=== PATIENT | female | born 1990 | race Asian ===

== ENCOUNTER 2017-04-15 14:11 | Inpatient (IN) | payer OTHER ==
[~2017-04-15] VITALS: Ht 172.7 cm; Wt 80.7 kg
--- NOTE | 2017-04-15 14:20 | NUR ---
VICTORIANO FROM HOME DUE TO ALTERED MENTAL STATUS. PATIENT RECEIVED ALERT. HOWEVER, PATIENT IS NON VERBAL. RESPONSE TO SIMPLE QUESTIONS ONLY. PATIENT IS AFEBRILE. PER REPORT FRIEND CALLED 911 FOR AMS AND RESCUE FOUND METHAMPETAIME SALT AND EDIBLE MARIJUANA WITH PATIENT. PATIENT'S VSS AT THIS TIME
--- NOTE | 2017-04-15 14:26 | NUR ---
PATIENT NOTED WITH WEAKNESS ON RIGHT UPPER EXTREMITY AND RIGHT LOWER EXTREMITY. REMAINS NON VERBAL. MD HERMAN MADE AWARE
--- NOTE | 2017-04-15 14:28 | NUR ---
PATIENT WAS TAKEN TO CT
--- NOTE | 2017-04-15 14:28 | NUR ---
CALLED [facility] TELESTROKE HOTLINE, SPOKE WITH FAUSTINO. EXPECTING A CALL BACK FROM DR SCHILLING.
[2017-04-15] MEDS ORDERED: IOHEXOL-350 100 ML VIAL IV ONE (14:31)
[2017-04-15] MEDS ORDERED: CT SWABBABLE VALVE TRANS SET 1 EA INFUS.SET MC ONE (14:31)
[2017-04-15] MEDS ORDERED: IV NS 0.9% 250 ML IV ONE (14:31)
--- NOTE | 2017-04-15 14:34 | NUR ---
DR HERMAN ON THE PHONE WITH DR SCHILLING FROM [place].
[2017-04-15 14:53] LABS: BASOPHILS # (AUTO) 0.1 /CMM (0.0-0.2); BASOPHILS % (AUTO) 0.9 % (0.0-2.0); EOSINOPHILS # (AUTO) 0.2 /CMM (0.0-0.7); EOSINOPHILS % (AUTO) 3.4 % (0.0-6.0); HEMATOCRIT 39 % (33-45); HEMOGLOBIN 12.9 g/dL (11.5-14.8); LYMPHOCYTES # (AUTO) 0.9 /CMM (0.8-4.8); MEAN CORPUSCULAR HEMOGLOBIN 30 PG (26.0-33.0); MEAN CORPUSCULAR HGB CONC 33 g/dl (31.0-36.0); MEAN CORPUSCULAR VOLUME 90 fL (82-100); MONOCYTES # (AUTO) 0.4 /CMM (0.1-1.30); MONOCYTES % (AUTO) 5.3 % (2.0-12.0); NEUTROPHILS # (AUTO) 5.3 /CMM (1.8-8.9); NEUTROPHILS % (AUTO) 77.4 % (43.0-81.0); PLATELET COUNT (AUTO) 229 /CMM (150-450); RDW COEFFICIENT OF VARIATION 12.9 (11.5-15.0); RED BLOOD CELL COUNT(AUTO) 4.28 MIL/uL (4.0-5.2); WHITE BLOOD COUNT (AUTO) 6.9 K/uL (4.3-11.0)
--- NOTE | 2017-04-15 14:53 | NUR ---
CALLED [facility] TELESTROKE LINE, DR SCHILLING WILL BE NOTIFIED OF CT RESULTS
--- NOTE | 2017-04-15 14:56 | NUR ---
URINE SAMPLE SENT
[2017-04-15 15:03] LABS: CALCIUM, SERUM 7.9 mg/dL (8.5-10.1); CARBON DIOXIDE 26 mmol/L (21-32); CHLORIDE 104 mmol/L (98-107); CREATININE 0.7 mg/dL (0.6-1.3); GLUCOSE 99 mg/dL (74-106); SODIUM SERUM 137 mmol/L (136-145); UREA NITROGEN, BLOOD 10 mg/dL (7-18)
--- NOTE | 2017-04-15 15:05 | NUR ---
DR. NAIK ON THE PHONE WITH DR HERMAN.
[2017-04-15 15:06] LABS: INR 1.05 (0.87-1.13); PROTHROMBIN TIME 10.9 SECS (9.5-12.7)
[2017-04-15 15:08] LABS: ALANINE AMINOTRANSFERASE 17 U/L (12-78); ALBUMIN 3.3 g/dL (3.4-5.0); ALKALINE PHOSPHATASE 36 U/L (46-116); ASPARTATE AMINOTRANSFERASE 18 U/L (15-37); BILIRUBIN,DIRECT 0.1 mg/dL (0.0-0.2); BILIRUBIN,TOTAL 0.5 mg/dL (0.2-1.0)
[2017-04-15 15:10] LABS: TROPONIN I < 0.017 ng/mL (0.00-0.056)
[2017-04-15] MEDS ORDERED: ASPIRIN 81 MG TAB.CHEW ONE (15:27)
[2017-04-15] MEDS ORDERED: ONDANSETRON HCL/PF 4 MG/2 ML VIAL IVP PRN (15:30)
[2017-04-15] MEDS ORDERED: ZOLPIDEM TARTRATE 5 MG TABLET PO PRN (15:30)
[2017-04-15] MEDS ORDERED: MAGNESIUM HYDROXIDE 30 ML UDC PO PRN (15:30)
[2017-04-15] MEDS ORDERED: ASPIRIN 81 MG TAB.CHEW PO ONE (15:30)
[2017-04-15] MEDS ORDERED: Z GUARD REMEDY 2 OZ OINT TP PRN (15:30)
[2017-04-15] MEDS ORDERED: ACETAMINOPHEN 325 MG TABLET PO PRN (15:30)
[2017-04-15] MEDS ORDERED: MAG HYDROX/AL HYDROX/SIMETH 30 ML UDC PO PRN (15:30)
--- NOTE | 2017-04-15 15:42 | NUR ---
PATIENT WILL BE ADMITTED INTO [facility].
--- NOTE | 2017-04-15 15:43 | NUR ---
TEXTED FOR MRI APPROVAL.
--- NOTE | 2017-04-15 16:21 | NUR ---
PATIENT TRANSPORTED TO [facility]. VS [facility] STABLE. RUBY COX AT BS
--- NOTE | 2017-04-15 16:30 | NUR ---
MS RN RECEIVED A NEW ADMISSION FROM ER, 27 YEAR OLD PATIENT, CAME IN W/ DX OF TIA, PATIENT IS AWAKE, BUT DOES NOT SPEAK, RESPIRATIONS EVEN AND UNLABORED, NO SOB NOTED, PATIENT CAN'T SPEAK AT THIS TIME, STROKE PROTOCOL INITIATED, NO S/S OF INFECTION NOTED.WILL MONITOR PATIENT'S CONDITION.
--- NOTE | 2017-04-15 19:00 | NUR ---
MS RN ON BED, FRIENDS ON BED SIDE, NO DISTRESS NOTED.
[2017-04-15 19:08] LABS: BASOPHILS % (AUTO) 0.3 % (0.0-2.0); EOSINOPHILS # (AUTO) 0.2 /CMM (0.0-0.7); EOSINOPHILS % (AUTO) 1.9 % (0.0-6.0); HEMATOCRIT 41 % (33-45); HEMOGLOBIN 13.7 g/dL (11.5-14.8); LYMPHOCYTES # (AUTO) 1.2 /CMM (0.8-4.8); LYMPHOCYTES % (AUTO) 13.5 % (20.0-44.0); MEAN CORPUSCULAR HEMOGLOBIN 30 PG (26.0-33.0); MEAN CORPUSCULAR HGB CONC 33 g/dl (31.0-36.0); MEAN CORPUSCULAR VOLUME 90 fL (82-100); MONOCYTES # (AUTO) 0.4 /CMM (0.1-1.30); MONOCYTES % (AUTO) 5.3 % (2.0-12.0); NEUTROPHILS # (AUTO) 6.8 /CMM (1.8-8.9); PLATELET COUNT (AUTO) 247 /CMM (150-450); RDW COEFFICIENT OF VARIATION 13.3 (11.5-15.0); WHITE BLOOD COUNT (AUTO) 8.6 K/uL (4.3-11.0)
[2017-04-15 19:20] LABS: CALCIUM, SERUM 8.5 mg/dL (8.5-10.1); CREATININE 0.6 mg/dL (0.6-1.3); POTASSIUM 3.5 mmol/L (3.5-5.1)
[2017-04-15 19:30] LABS: INR 0.98 (0.87-1.13); PROTHROMBIN TIME 10.5 SECS (9.5-12.7)
--- NOTE | 2017-04-15 19:30 | NUR ---
RN INITIAL NOTES RECEIVED PATIENT IN BED, AWAKE AND ALERT. FRIENDS AT BEDSIDE. PATIENT AT THIS TIME IS OBSERVED TO BE ABLE TO INTERACT WITH FRIENDS - NOTED TO BE MONOSYLLABIC SUCH "YES", "NO", EXCLAIM PAIN WITH "AWWW", ABLE TO SIT UP IN BED, ABLE TO SIT ERECT. PATIENT OBSERVED WITH R SIDED DROOPING OF THE LIP WITH SMILING, DROOLING ON RIGHT SIDE OF THE LIP. LEFT UPPER AND LOWER EXTREMITY WITH MILD WEAKNESS. RIGHT UPPER AND LOWER EXTREMITY IS SEVERELY WEAK. PATIENT IS ON ROOM AIR, NO DISTRESS. SR-SB ON TELE AT 58-62. PATIENT ABLE TO FOLLOW COMMANDS. ON CLOSE MONITORING.
[2017-04-15 19:32] LABS: ALBUMIN 3.8 g/dL (3.4-5.0); BILIRUBIN,TOTAL 0.5 mg/dL (0.2-1.0)
[2017-04-15 19:33] LABS: THYROID STIMULATING HORMONE 2.081 uIU/mL (0.358-3.74)
[2017-04-15 20:00] VITALS: BP 123/76
--- NOTE | 2017-04-15 20:00 | NUR ---
RN NOTES NURSE ASSISTANCE WARRANTED BY THE PATIENT FOR URGE TO URINATE. OFFERED TO PATIENT USE OF BEDPAN D/T NOTED WEAKNESS. PATIENT STRONGLY REFUSED AND INSISTED ON GOING TO THE BATHROOM, INSTRUCTED AND REINFORCED SAFETY AND FALL PRECAUTION TO PATIENT BY WHICH SHE WAS ABLE TO COMPREHEND AND COMPLY, HOWEVER, PATIENT STILL INSISTING ON USING THE TOILET, BY WHICH PATIENT WAS ATTEMPTING TO GET OUT OF BED. OFFERED BEDSIDE COMMODE. PATIENT'S BOYFRIEND AT BEDSIDE REASSURING PATIENT NEEDED. PATIENT ASSISTED TO THE COMMODE. PATIENT ABLE TO STAND UP WITH LEANING AND PIVOTING USING HER LEFT LEG FOR SUPPORT, MAX ASSIST BY STAFF, PATIENT UNABLE TO MOVE/PIVOT WITH RIGHT LEG NOTED. SAFETY AND FALL PRECAUTION OBSERVED AT ALL TIMES. REPOSITIONED PATIENT FOR SAFETY AND COMFORT. PATIENT ABLE TO MAKE BASIC NEEDS KNOWN, ABLE TO USE COMMUNICATION BOARD, WRITING AND POINTING ON HER NEEDS. WILL CONTINUE TO MONITOR.
--- NOTE | 2017-04-15 21:30 | NUR ---
RN NOTES RECEIVED CALL FROM PATIENT'S FRIEND, JOURDAN FROM [place], [phone]. ACCORDING TO JOURDAN, SHE HAS KNOWN THE PATIENT FOR 10 YEARS AND SHE IS ABLE TO BE IN CONTACT WITH THE PATIENT'S PARENTS AT [facility]. PER JOURDAN, BACK IN MARCH, PATIENT VISITED HER AND PATIENT WAS COMPLAINING OF SEVERE BACK PAIN WITH RECENT FALL INCIDENT. UNABLE TO SHARE ANY OTHER MEDICAL HISTORY. NOTED.
[2017-04-15] MEDS ORDERED: BLOOD SUGAR DIAGNOSTIC 1 EACH STRIP IN SCH (22:00)
[2017-04-15] MEDS: ATORVASTATIN 40 MG TABLET PO SCH (22:00)
--- NOTE | 2017-04-15 22:00 | NUR ---
RN NOTES PATIENT IN BED, SLEEPING COMFORTABLY. NO DISTRESS. UNABLE TO DO NURSING SWALLOW, PATIENT IS LETHARGIC/DROWSY. UNSAFE FOR SWALLOW EVAL.
[2017-04-15] MEDS: BLOOD SUGAR DIAGNOSTIC 1 EACH STRIP IN SCH (22:22)
--- NOTE | 2017-04-15 22:40 | NUR ---
RN NOTES PATIENT'S FRIEND, JULIETA EMERSON , ABLE TO PRESENT TO RN THE PATIENT'S PRESCRIPTION MEDICATION FOUND AT PATIENT'S APT. NOTED PATIENT'S MEDS AND UPDATED MED RECON. WILL NOTIFY .
[2017-04-15] MEDS ORDERED: IV NS 0.9% 1,000 ML BAG IV PRN (23:30)
[2017-04-15] MEDS ORDERED: DEXT10TA18 PO (23:33)
[2017-04-15] MEDS ORDERED: ESCI20TA PO (23:33)
[2017-04-16] VITALS: BP 92/69
[2017-04-16] MEDS ORDERED: BLOOD SUGAR DIAGNOSTIC 1 EACH STRIP IN SCH
[2017-04-16] MEDS: BLOOD SUGAR DIAGNOSTIC 1 EACH STRIP IN SCH ×9 (01:04→23:57)
--- NOTE | 2017-04-16 01:35 | NUR ---
RN NOTES PATIENT'S BS NOTED TO BE 89. PATIENT IS SLEEPING COMFORTABLY IN BED, NO DISTRESS. AROUSABLE WITH VERBAL AND TACTILE STIMULI. SB AT 52. ON ROOM AIR. PATIENT OBSERVED TO BE ABLE TO DO BED MOBILITY PER SELF, FAVORING TURNING TOWARDS RIGHT SIDE, CONGRUENT WITH NOTED R SIDED WEAKNESS.
[2017-04-16 04:00] VITALS: BP 113/63
--- NOTE | 2017-04-16 05:01 | NUR ---
RN NOTES PATIENT AWAKE AT 0400, PATIENT PROVIDED WITH AM CARE, ASSISTED WITH ADLS NEEDED. NIHSS REEVALUATED AND SCORED, IMPROVEMENT NOTED. INFORMED DR. MAYORGA, NNO GIVEN. SAFETY AND COMFORT ENSURED. CALL LIGHT IN REACH. Addendum: 04/16/17 at 0505 by LACIE ROSAS RN NURSING SWALLOW DONE. PATIENT ABLE TO TOLERATE ICE CHIPS AND JELLO/APPLE SAUCE WELL. PATIENT ABLE TO TOLERATE SIPS OF THIN LIQUIDS, HOWEVER D/T NOTED FACIAL DROOPING, PATIENT TENDS TO DROOL ON THE RIGHT SIDE (WEAK SIDE). ASPIRATION PRECAUTION OBSERVED AT ALL TIMES. CN AWARE. NOTIFIED.
[2017-04-16 06:51] LABS: BASOPHILS % (AUTO) 0.4 % (0.0-2.0); EOSINOPHILS # (AUTO) 0.3 /CMM (0.0-0.7); EOSINOPHILS % (AUTO) 4.2 % (0.0-6.0); HEMATOCRIT 39 % (33-45); HEMOGLOBIN 13.3 g/dL (11.5-14.8); LYMPHOCYTES # (AUTO) 1.2 /CMM (0.8-4.8); LYMPHOCYTES % (AUTO) 15.7 % (20.0-44.0); MEAN CORPUSCULAR HEMOGLOBIN 30 PG (26.0-33.0); MEAN CORPUSCULAR HGB CONC 34 g/dl (31.0-36.0); MEAN CORPUSCULAR VOLUME 89 fL (82-100); MONOCYTES # (AUTO) 0.5 /CMM (0.1-1.30); MONOCYTES % (AUTO) 6.5 % (2.0-12.0); NEUTROPHILS # (AUTO) 5.7 /CMM (1.8-8.9); NEUTROPHILS % (AUTO) 73.2 % (43.0-81.0); PLATELET COUNT (AUTO) 218 /CMM (150-450); RDW COEFFICIENT OF VARIATION 13.1 (11.5-15.0); RED BLOOD CELL COUNT(AUTO) 4.39 MIL/uL (4.0-5.2); WHITE BLOOD COUNT (AUTO) 7.8 K/uL (4.3-11.0)
--- NOTE | 2017-04-16 06:55 | NUR ---
RN CLOSING NOTES PATIENT SLEEPING COMFORTABLY. NO DISTRESS. SB AT 53. PATIENT WITH IMPROVEMENT IN OVERALL CONDITION OBSERVED. STILL NOTED WITH R SIDED WEAKNESS. COMMUNICATION HAS IMPROVED, ABLE TO USE COMMUNICATION BOARD, ABLE TO ARTICULATE MONOSYLLABIC WORDS, DELAY WITH THOUGHT NOTED, PATIENT PROVIDED WITH REASSURANCE AND REINFORCEMENT NEEDED. IVF INFUSING WELL ON PATIENT'S L AC, R FOREARM PIV FLUSHED AND INTACT. PATIENT'S NEEDS ANTICIPATED AND MET. SAFETY AND COMFORT ENSURED. FALL PRECAUTIONS OBSERVED AT ALL TIMES. CLOSE VISUAL MONITORING DONE. CALL LIGHT IN REACH. WILL ENDORSE ACCORDINGLY FOR CONTINUITY OF CARE.
[2017-04-16 07:45] LABS: CALCIUM, SERUM 8.4 mg/dL (8.5-10.1); CREATININE 0.6 mg/dL (0.6-1.3); MAGNESIUM 1.7 mg/dL (1.8-2.4); PHOSPHORUS 3.4 mg/dL (2.5-4.9); POTASSIUM 3.7 mmol/L (3.5-5.1)
--- NOTE | 2017-04-16 07:58 | NUR ---
RN NOTES RECEIVED PT RESTING IN BED, ASLEEP AT THIS TIME. EASILY AROUSABLE TO VERBAL AND TACTILE STIMULI. ON RA TOLERATED WELL, NO SOB NOTED. NO ACUTE DISTRESS NOTED. CLIP BOARD LEFT AT BEDSIDE TO COMMUNICATE WITH THE PT. ONGOING IVF NS@75ML/HR INFUSING WELL ON L AC. BEDSIDE COMMODE PROVIDED AT BEDSIDE. SAFETY MAINTAINED. WILL CONTINUE TO MONITOR AND ASSESS PT. CALL LIGHT WITHIN REACH.
[2017-04-16 08:00] VITALS: BP 128/77
[2017-04-16 08:39] LABS: INR 1.01 (0.87-1.13); PROTHROMBIN TIME 10.8 SECS (9.5-12.7)
[2017-04-16] MEDS: PANTOPRAZOLE 40 MG TABLET.DR PO SCH (09:17)
[2017-04-16] MEDS: ASPIRIN 81 MG TAB.CHEW PO SCH (09:18)
[2017-04-16] MEDS: Magnesium 1GM/D5W 100ML PREMIX 100 ML IV SCH ×2 (11:32→14:53)
[2017-04-16] MEDS: IV NS 0.9% 1,000 ML IV PRN ×2 (11:33→20:25)
[2017-04-16 12:00] VITALS: BP_SYST 128; BP_DIAS 70; BP_DIAS 76
--- NOTE | 2017-04-16 13:58 | NUR ---
Social service consult requested by Dr. Restrepo for Stroke. Pt. is a 27 year old female who was admitted to [facility] for TIA. ROSHAN and therapeutic case manager Willy met with pt's friends outside of her room as pt. was being brought back from an MRI. 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 Pt. had a birthday on Saturday and drinks alcohol, however Merritt denies pt. uses any drugs. Pt's toxicology reports showed positive for cannabis. Pt. was also found on the floor at her apartment by a friend with some marijuana edibles and methamphetamine salts. According to pt's friend Merritt, pt. has international medical insurance and he will try to get the information from the pt. Pt. also has a boyfriend Yefri . ROSHAN and therapeutic case manager also met with pt. Pt. is alert, however pt. 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 Merritt informed ROSHAN that pt's family live outside of the [place] and parents are aware of pt's hospitalization. SW to further assess when pt. is more oriented and can provide more information.
--- NOTE | 2017-04-16 15:13 | NUR ---
RN NOTES RECEIVED BRAIN MRI RESULT: Recent, subacute left basal ganglia infarct with mass effect and narrowing of the left lateral ventricle. CALLED DR QUINTANA'S EXCHANGE, LEFT A MESSAGE TO HOT PATCHER CHIO, AWAITING FOR CALL BACK.
--- NOTE | 2017-04-16 15:39 | NUR ---
RN NOTES 1513 RECEIVED BRAIN MRI RESULT: Recent, subacute left basal ganglia infarct with mass effect and narrowing of the left lateral ventricle. CALLED DR QUINTANA'S EXCHANGE, LEFT A MESSAGE TO REFRIGERATION REPAIR SUPERVISOR CHIO, AWAITING FOR CALL BACK. 1515 RN NOTES, DR BURDICK NOTIFIED OF BRAIN MRI RESULT.
[2017-04-16 16:00] VITALS: BP 105/66
--- NOTE | 2017-04-16 18:48 | NUR ---
RN NOTES PT IN BED, HOD ELEVATED, FRIENDS AND BF AT BEDSIDE. PT MORE AWAKE NOW, ABLE TO SPEAK WITH SLURRED SPEECH NOTED. LUE AND LLE ABLE TO MOVE WITHOUT DIFFICULTY. RUE AND RLE FLACCID, PT AND OT AND ST FOLLOWING. DENIES PAIN AT THIS TIME. SR 64 BPM AT THIS TIME. STROKE EDUCATION GIVEN TO PT, PT NODS HER HEAD TO SHOW UNDERSTANDING. ALL DUE MEDS GIVEN, NEEDS ATTENDED. BEDSIDE COMMODE PROVIDED AT BEDSIDE. MONITORED ACCORDINGLY, VS STABLE AT THIS TIME.
--- NOTE | 2017-04-16 19:30 | NUR ---
[facility] RN INITIAL NOTE PT RECEIVED SITTING ON CHAIR WITH FRIENDS AT BEDSIDE EATING WITH SOME ASSISTANCE. A/O X3 WITH SLURRED SPEECH NOTED BUT ABLE TO MAKE NEEDS KNOWN. NEURO CHECK PERFORMED. HEART, LUNG AND BOWEL SOUNDS AUSCULTATED. RUE/RLE NOTED FLACCID AND WITHOUT MOVEMENT. LUE/LLE NOTED WITHOUT ANY DEFICITS. TELE- SINUS RHYTHM 70. ON ROOM AIR AND SATURATING WELL. IV LAC AND RFA CLEAN, PATENT, FLUSHING WELL AND INTACT. VITALS SIGNS: BP 116/61 ALL OTHER VS WNL. NO C/O PAIN OR DISCOMFORT AT THIS TIME. CALL LIGHT WITHIN REACH AT ALL TIMES. WILL CONTINUE TO MONITOR.
[2017-04-16 20:00] VITALS: BP 116/61
[2017-04-16] MEDS: ATORVASTATIN 40 MG TABLET PO SCH (22:18)
[2017-04-17] VITALS: BP 105/63
[2017-04-17 04:00] VITALS: BP 106/64
[2017-04-17] MEDS: BLOOD SUGAR DIAGNOSTIC 1 EACH STRIP IN SCH ×5 (06:14→21:17)
--- NOTE | 2017-04-17 06:35 | NUR ---
[facility] RN CLOSING NOTE PT REMAINED STABLE DURING SHIFT. NO ACUTE DISTRESS NOTED. NEURO CHECKS DONE. PT STILL NOTED WITH RIGHT SIDED SEVERE WEAKNESS. TELE- SINUS TORRIE. NO C/O PAIN OR DISCOMFORT NOTED THROUGHOUT THE SHIFT. ALL NEEDS ATTENDED TO PROMPTLY. ASSISTED TO BEDSIDE COMMODE. KEPT CLEAN AND DRY. CALL LIGHT WITHIN EASY REACH. WILL ENDORSE TO NEXT SHIFT FOR CONTINUITY OF CARE.
--- NOTE | 2017-04-17 07:10 | NUR ---
[facility] RN INITIAL NOTES: REC'D PT ASLEEP ON BED, EASILY AROUSABLE, A/O X 3, DENIES ANY PAIN & DISCOMFORT AT THIS TIME. PT ON ROOM AIR, NO RESPIRATORY DISTRESS NOTED. ON TELEMONITOR, SB W/ HR 49 BPM WHILE ASLEEP. NEURO ASSESSMENT DONE, NOTED R SIDED BODY WEAKNESS. IV ACCESS ON RFA PATENT & INTACT W/ NS AT 75 CC/HR INFUSING WELL. PROVIDED COMFORT & SAFETY MEASURES. INSTRUCTED TO PRESS CALL LIGHT WHEN IN NEED OF ASSISTANCE DUE TO FALL RISK. PT VERBALIZED UNDERSTANDING. CALL LIGHT W/IN EASY REACH. BED KEPT LOW & IN LOCKED POS. WILL CONTINUE TO MONITOR.
[2017-04-17 08:00] VITALS: BP 115/69
[2017-04-17] MEDS: PANTOPRAZOLE 40 MG TABLET.DR PO SCH (08:15)
[2017-04-17] MEDS: ASPIRIN 81 MG TAB.CHEW PO SCH (08:15)
--- NOTE | 2017-04-17 09:21 | NUR ---
RN NOTES: PT SEEN & EXAMINED BY DR. QUINTANA W/ FOLLOWING ORDERS: DO STAT HIV 1/2 ANTIGEN ANTIBODY & RPR. START COLACE 100 MG PO BID. Addendum: 04/17/17 at 0932 by TAO WARD RN ADDENDUM: DR. QUINTANA NOTIFIED DR. GAGE RE: CONSULT.
--- NOTE | 2017-04-17 09:32 | NUR ---
RN NOTES: PT SEEN & EXAMINED BY DR. BURDICK. DR. GAGE TO ORDER FOR JEFF.
[2017-04-17] MEDS: IV NS 0.9% 1,000 ML IV PRN (10:42)
--- NOTE | 2017-04-17 10:54 | NUR ---
RN NOTES: PER ROGELIO ANAYA PT TO SHOWER - REMOVE TELEBOX & PUT BACK AFTER SHOWER. PT MADE AWARE.
--- NOTE | 2017-04-17 11:30 | NUR ---
RN NOTES: STROKE EDUCATION GIVEN TO PT. FRIEND AT BEDSIDE. PT VERBALIZED UNDERSTANDING.
[2017-04-17 12:00] VITALS: BP 110/68
--- NOTE | 2017-04-17 12:44 | NUR ---
RN NOTES: DR. BURDICK MADE AWARE TO RECONCILE PT'S HOME MEDICATION PER PHARMACY.
--- NOTE | 2017-04-17 13:28 | NUR ---
NURSING PACKAGE LINER DENNISE NOTIFIED REGARDING JEFF ORDERED AND ARRANGEMENT WITH ANAESTHESIA AND PATIENT NEED TO BE IN ICU FOR THE PROCEDURE.RADIOLOGY /CARDIO NOTIFIED PER TECH THEY WILL CONTACT PROGRAM CONSULTANT TO COORDINATE TIME,OBTAINED CONSENT WILL KEEP NPO POST MIDNIGHT.
--- NOTE | 2017-04-17 13:32 | NUR ---
RN NOTES: PT SEEN & EXAMINED BY DR. GAGE W/ ORDERS AND CARRIED OUT. PT SCHEDULED FOR JEFF TOMORROW MORNING PER MD. NEEDS TO BE NPO POST MIDNIGHT, PT MADE AWARE. CONSENT DONE SIGNED BY PT W/ FRIEND JOURDAN AT BEDSIDE. PT VERBALIZED UNDERSTANDING ABOUT THE PROCEDURE EXPLAINED BY THE DOCTOR.
--- NOTE | 2017-04-17 13:56 | NUR ---
RN NOTES: CM MADE AWARE OF EXCUSE LETTER FROM SCHOOL REQUEST. WILL FOLLOW UP.
--- NOTE | 2017-04-17 14:30 | NUR ---
SW was informed by RUBY Ellsworth that pt. would like a a verification of admission letter for her school. SW completed requested verification of admission letter and met with pt. bedside and handed letter to pt's friend Merritt. Pt. was sitting in a chair eating lunch with her friends.
--- NOTE | 2017-04-17 14:39 | NUR ---
per bone density technician they can do 0800 ca,facilitated to nursing sup xavier will coordinate anaesthesia per nursing sup will notify dr. nguyen once confirmed.
--- NOTE | 2017-04-17 15:19 | NUR ---
RAO NE AND MYESHA SIEBEL DEVELOPER CONFIRMED 0800 FOR JEFF,NURSING SUP DENNISE OLIVIA WILL TRANSFER PT. TO ICU IN AM FOR JEFF,DR. ENG NOTIFIED.
--- NOTE | 2017-04-17 15:30 | NUR ---
RN NOTES: PT AND FRIEND JOURDAN MADE AWARE OF JEFF SCHEDULE - 8AM AT ICU.
[2017-04-17 16:00] VITALS: BP 110/58
[2017-04-17] MEDS: DOCUSATE SODIUM 100 MG CAPSULE PO SCH (17:29)
--- NOTE | 2017-04-17 17:56 | NUR ---
RN NOTES: DR. GAGE CALLED & CONFIRMED 8AM JEFF SCHEDULE.
--- NOTE | 2017-04-17 18:51 | NUR ---
[facility] RN CLOSING NOTES: NO ACUTE CHANGES NOTED W/IN SHIFT. PT TOLERATED ROOM AIR, NO RESPIRATORY DISTRESS NOTED. ON TELEMONITOR, SR. NEURO ASSESSMENT DONE - GCS 15, STILL W/ R SIDED BODY WEAKNESS AND MILD FACIAL WEAKNESS. IV ACCESS ON RFA KEPT PATENT & INTACT W/ NS AT 75 CC/HR INFUSING WELL. PT TOLERATED PT/OT/ST. KEPT WELL RESTED. NEEDS ATTENDED. INSTRUCTED NPO POST MIDNIGHT FOR JEFF PROCEDURE. PT VERBALIZED UNDERSTANDING. CALL LIGHT KEPT W/IN EASY REACH. BED KEPT LOW & IN LOCKED POS. SIGNIFICANT OTHER AT BEDSIDE. WILL ENDORSE TO PM RN FOR YASMEEN.
--- NOTE | 2017-04-17 19:42 | NUR ---
RN INITIAL NOTE; PT IS SITTING ON THE CHAIR WITHOUT ANY DISTRESS ,A/O X 4 , BREATHING EVEN AND UNLABORED ON ROOM AIR. TELE MONITOR SHOWING SR HR 69. RFA 20G PERIPHERAL IV INTACT AND PATENT WITH NS @ 75 ML/HR . DENIED ANY PAIN AT THIS TIME. BED IN THE LOWEST/LOCKED POSITION . PT IS INSTRUCTED FOR NPO AFTER MIDNIGHT FOR JEFF TOMORROW MORNING . WILL CONTINUE TO MONITOR .
[2017-04-17 20:00] VITALS: BP 116/66
[2017-04-17] MEDS: ATORVASTATIN 40 MG TABLET PO SCH (21:14)
[2017-04-18] VITALS (11 sets, daily range): BP systolic 97–119; BP diastolic 46–75
[2017-04-18] MEDS: IV NS 0.9% 1,000 ML IV PRN ×2 (02:05→10:40)
--- NOTE | 2017-04-18 06:30 | NUR ---
[facility] RN ; PT TRANSFERRED TO ICU FOR THE PROCEDURE JEFF . REPORT GIVEN TO RN . PT IS NPO POST MIDNIGHT , CONSENT SIGNED BY THE PATIENT .
[2017-04-18] MEDS: BLOOD SUGAR DIAGNOSTIC 1 EACH STRIP IN SCH ×4 (06:42→21:16)
--- NOTE | 2017-04-18 06:45 | NUR ---
ICU/RN-RECEIVED PT. FROM TD PER ACLS PROTOCOL. BY BED , ACCOMPANIED BY RN AND SOFTWARE DEVELOPMENT ENGINEER.PT.IS AWAKE, ALERT, FOLLOWS SIMPLE COMMANDS. RUE W/ SEVERE WEAKNESS, RIGHT LEG IS FLACCID, LEFT SIDE IS WNL.NODS HEAD APPROPRIATELY, BUT DOES NOT TALK.EKG SR W/ HR-85, BP-113/75. ON ROOM AIR, SATS.-97%. NO S/S OF PAIN OR DISCOMFORT. FOR JEFF TODAY, W/ CONSENT SIGNED BY PT.
[2017-04-18 08:29] LABS: BASOPHILS % (AUTO) 0.1 % (0.0-2.0); EOSINOPHILS # (AUTO) 0.3 /CMM (0.0-0.7); EOSINOPHILS % (AUTO) 5.3 % (0.0-6.0); HEMATOCRIT 37 % (33-45); HEMOGLOBIN 12.6 g/dL (11.5-14.8); LYMPHOCYTES # (AUTO) 1.3 /CMM (0.8-4.8); MEAN CORPUSCULAR HEMOGLOBIN 31 PG (26.0-33.0); MEAN CORPUSCULAR HGB CONC 35 g/dl (31.0-36.0); MEAN CORPUSCULAR VOLUME 89 fL (82-100); MONOCYTES # (AUTO) 0.5 /CMM (0.1-1.30); MONOCYTES % (AUTO) 7.9 % (2.0-12.0); NEUTROPHILS # (AUTO) 3.8 /CMM (1.8-8.9); NEUTROPHILS % (AUTO) 64.7 % (43.0-81.0); PLATELET COUNT (AUTO) 191 /CMM (150-450); RDW COEFFICIENT OF VARIATION 13.5 (11.5-15.0); RED BLOOD CELL COUNT(AUTO) 4.09 MIL/uL (4.0-5.2); WHITE BLOOD COUNT (AUTO) 5.9 K/uL (4.3-11.0)
[2017-04-18 08:30] LABS: CALCIUM, SERUM 7.8 mg/dL (8.5-10.1); CREATININE 0.6 mg/dL (0.6-1.3); POTASSIUM 3.8 mmol/L (3.5-5.1)
[2017-04-18 08:36] LABS: INR 0.98 (0.87-1.13); PROTHROMBIN TIME 10.5 SECS (9.5-12.7)
[2017-04-18] MEDS: DOCUSATE SODIUM 100 MG CAPSULE PO SCH ×2 (08:48→16:39)
[2017-04-18] MEDS: ASPIRIN 81 MG TAB.CHEW PO SCH (08:48)
[2017-04-18] MEDS: PANTOPRAZOLE 40 MG TABLET.DR PO SCH (08:48)
--- NOTE | 2017-04-18 10:06 | NUR ---
TABLE TOP TILE SETTER NOTE 0720: Received patient awake, A.Ox3, no respiratory distress noted, tolerated room air. No c/o any discomfort noted at this time. With PIV intact. IVF infusing as ordered. SR 40's on the monitor. Remained NPO for plan of JEFF today. Patient aware for the procedure and for the POC. Noted with RUE weakness and RLE flaccid. 0830: Done with JEFF by Dr. Carrera and anesthesiologist, patient tolerated procedure. 0900: S/E by Dr. Chavez, with order to do another MRI brain with contrast today, patient aware and signed consent and completed MRI questionnaire. 1005: Report given to Fabiana BELTRAN, all questions and concern were answered.
[2017-04-18 10:20] LABS: *ANTITHROMBIN III AG 94 % (72-124); *DILUTE PROTHROMBIN TIME (dPT) 50.4 sec (0.0-55.0); *PTT-LA 38.2 sec (0.0-51.9); *THROMBIN TIME 21.7 sec (0.0-23.0); *dPT CONFIRM RATIO 1.09 Ratio (0.00-1.40); *dRVVT 36.6 sec (0.0-47.0); PROTEIN C ACTIVITY 125 % (73-180); PROTEIN S ACTIVITY 90 % (63-140)
--- NOTE | 2017-04-18 10:38 | NUR ---
DEGREASING SOLUTION MIXER NOTE Restarted new PIV g20 on EZ for RFA PIV infiltrated. Transferred via wheelchair to 101, using ACLS protocol. accompanied by friend. Endorsed to Fabiana BELTRAN for YASMEEN.
[2017-04-18 11:11] LABS: *INTERPRETATION Comment: (.)
--- NOTE | 2017-04-18 11:49 | NUR ---
[facility] RN NOTE RECEIVED PT. FROM ICU , ACCOMPANIED BY RN AND MELT HELPER.PT.IS AWAKE, ALERT, FOLLOWS SIMPLE COMMANDS. RUE W/ SEVERE WEAKNESS, RIGHT LEG IS FLACCID, LEFT SIDE IS WNL APPROPRIATELY,ON TELE MONITOR SB HR-55 . NO S/S OF PAIN OR DISCOMFORT. NEURO CHECK DONE , ON MRI AT THIS TIME , STARTED ON IVF ORDERED .
--- NOTE | 2017-04-18 12:29 | NUR ---
[facility] RN NOTE BACK FROM MRI ABLE TO EAT LUNCH
--- NOTE | 2017-04-18 12:50 | NUR ---
[facility] RN NOTE ST AT BEDSIDE ,ALL NEEDS ATTENDED , CONT ON IVF ORDERED
--- NOTE | 2017-04-18 15:10 | NUR ---
RECYCLING TECH NOTE PER DR AISHA LR TO HAVE SHOWER , OK TO TO TRANSFER TO MEDS SURGE UNIT
--- NOTE | 2017-04-18 15:27 | NUR ---
HEALTH SUPPORT SPECIALIST NOTE SPOKE WITH DR QUINTANA NEUROLOGIST REPORTED MRI RESULT NO NEWCORDER GIVEN AT THIS TIME
--- NOTE | 2017-04-18 15:40 | NUR ---
MS RN NOTE SEEN BY PT, NOT IN ACUTE DISTRESS
--- NOTE | 2017-04-18 19:01 | NUR ---
MS RN NOTE RECHECK BLOOD SUGAR AFTER DINNER 154 MG\ DL WILL CONT TO MONITOR CLOSELY
[2017-04-19] MEDS: IV NS 0.9% 1,000 ML IV PRN ×2 (00:05→16:10)
--- NOTE | 2017-04-19 00:31 | NUR ---
RN NOTES RECEIVED PATIENT AWAKE IN BED WITH FRIENDS AT BEDSIDE. ALERT AND ORIENTED X 4. NOTED WITH DELAYED SPEECH. ON ROOM AIR, NO RESPIRATORY DISTRESS OR SHORTNESS OF BREATH. BREATHING EVEN AND UNLABORED. NOTED WITH RIDE SIDED WEAKNESS. NO COMPLAINT OF PAIN OR DISCOMFORT. WILL CONTINUE TO MONITOR.
[2017-04-19 04:00] VITALS: BP 108/57
[2017-04-19 06:11] LABS: *CARD ANTI-CARDIOLIPIN AB IgG <9 GPL U/mL (0-14); *CARD ANTI-CARDIOLIPIN AB IgM <9 MPL U/mL (0-12)
--- NOTE | 2017-04-19 07:10 | NUR ---
MS RN INITIAL NOTES: REC'D PT ASLEEP ON BED, EASILY AROUSABLE, A/O X 3, DENIES ANY PAIN & DISCOMFORT AT THIS TIME. PT ON ROOM AIR, NO RESPIRATORY DISTRESS NOTED. NEURO ASSESSMENT DONE, STILL NOTED R SIDED BODY WEAKNESS. IV ACCESS ON EZ G 20 PATENT & INTACT W/ NS AT 75 CC/HR INFUSING WELL. PROVIDED COMFORT & SAFETY MEASURES. INSTRUCTED TO PRESS CALL LIGHT WHEN IN NEED OF ASSISTANCE DUE TO FALL RISK. PT VERBALIZED UNDERSTANDING. CALL LIGHT W/IN EASY REACH. BED KEPT LOW & IN LOCKED POS. WILL CONTINUE TO MONITOR.
--- NOTE | 2017-04-19 07:29 | NUR ---
RN CLOSING NOTES PATIENT IN BED RESTING COMFORTABLY WITH NO COMPLAINT OF PAIN OR DISCOMFORT. NO DISTRESS NOTED. WILL ENDORSE TO AM SHIFT FOR CONTINUITY OF CARE
[2017-04-19 08:00] VITALS: BP 120/69
[2017-04-19] MEDS: BLOOD SUGAR DIAGNOSTIC 1 EACH STRIP IN SCH ×4 (08:06→22:12)
[2017-04-19] MEDS: ASPIRIN 81 MG TAB.CHEW PO SCH (08:08)
[2017-04-19] MEDS: PANTOPRAZOLE 40 MG TABLET.DR PO SCH (08:08)
[2017-04-19] MEDS: DOCUSATE SODIUM 100 MG CAPSULE PO SCH ×2 (08:08→17:23)
--- NOTE | 2017-04-19 09:00 | NUR ---
RN NOTES: PT TOLERATES PHYSICAL THERAPY.
--- NOTE | 2017-04-19 10:00 | NUR ---
RN NOTES: PT SEEN & EXAMINED BY DR. QUINTANA W/ NO NEW ORDERS. PER MD, PT FOR ACUTE REHAB & SHE WILL COMMUNICATE W/ [facility].
[2017-04-19 16:00] VITALS: BP 113/63
--- NOTE | 2017-04-19 18:42 | NUR ---
MS RN CLOSING NOTES: NO ACUTE CHANGES NOTED W/IN SHIFT. PT TOLERATED ROOM AIR, NO RESPIRATORY DISTRESS NOTED. NEURO ASSESSMENT DONE - GCS 15, STILL W/ R SIDED BODY WEAKNESS AND MILD FACIAL WEAKNESS. IV ACCESS ON EZ G20 KEPT PATENT & INTACT W/ NS AT 75 CC/HR INFUSING WELL. PT TOLERATED PT & ST. KEPT WELL RESTED. NEEDS ATTENDED. CALL LIGHT KEPT W/IN EASY REACH. BED KEPT LOW & IN LOCKED POS. WILL ENDORSE TO PM RN FOR YASMEEN.
[2017-04-19 20:00] VITALS: BP_SYST 105; BP_SYST 119; BP_DIAS 52; BP_DIAS 56
--- NOTE | 2017-04-19 20:00 | NUR ---
RN NOTES RESTING COMFORTABLY ON A CHAIR, AWAKE, ALERT AND ORIENTED WITH FAMILY AT BEDSIDE. ON ROOM AIR, NO DISTRESS NOTED. ABLE TO VERBALLY COMMUNICATE NEEDS. NO COMPLAINT OF PAIN OR DISCOMFORT. KEPT CLEAN AND DRY. WILL CONTINUE TO MONITOR.
[2017-04-20 04:00] VITALS: BP 102/57
[2017-04-20] MEDS: IV NS 0.9% 1,000 ML IV PRN ×2 (04:21→18:04)
--- NOTE | 2017-04-20 06:48 | NUR ---
RN CLOSING NOTES PATIENT COMFORTABLY RESTING IN BED WITH NO DISTRESS NOTED. NO COMPLAINT OF PAIN OR DISCOMFORT. SLEPT SOUNDLY DURING THE NIGHT. VITAL SIGNS WNL. NO SIGNIFICANT CHANGE OF CONDITION. WILL ENDORSE TO AM SHIFT FOR CONTINUITY OF CAR
--- NOTE | 2017-04-20 07:05 | NUR ---
MS RN INITIAL NOTES: RECEIVED PT RESTING COMFORTABLY IN BED AND EASILY AWAKEN TO NAME, A&OX4. ON RA, RESPIRATIONS EVEN AND UNLABORED WITH NO SOB NOTED. DENIES PAIN. R SIDED BODY WEAKNESS NOTED. IV ACCESS ON EZ G 20 PATENT & INTACT W/ NS AT 75 CC/HR INFUSING. CARE PLAN REVIEWED AND ADVISED TO USE CALL LIGHT FOR ASSISTANCE, PT VERBALIZED UNDERSTANDING. BED LOW, LOCKED WITH CALL LIGHT WITHIN REACH. WILL CONT TO MONITOR.
[2017-04-20] MEDS: BLOOD SUGAR DIAGNOSTIC 1 EACH STRIP IN SCH ×4 (07:42→21:29)
[2017-04-20] MEDS: PANTOPRAZOLE 40 MG TABLET.DR PO SCH (07:42)
[2017-04-20 08:00] VITALS: BP 111/68
[2017-04-20] MEDS: DOCUSATE SODIUM 100 MG CAPSULE PO SCH ×2 (08:10→16:54)
[2017-04-20] MEDS: ASPIRIN 81 MG TAB.CHEW PO SCH (08:10)
--- NOTE | 2017-04-20 08:40 | NUR ---
MS RN NOTE: DR. BURDICK AT BEDSIDE.
[2017-04-20] MEDS ORDERED: DOCU-25 PO (09:02)
[2017-04-20] MEDS ORDERED: ASPI81TA2 PO (09:02)
[2017-04-20] MEDS ORDERED: PANT40TA2 PO (09:02)
--- NOTE | 2017-04-20 10:45 | NUR ---
MS RN NOTE: PT INFORMED OF [facility] FOR REHAB D/C PLANNING.
[2017-04-20] MEDS ORDERED: DEXTROSE 50%-WATER 50 ML DISP.SYRIN IVP PRN (11:30)
--- NOTE | 2017-04-20 12:45 | NUR ---
MS RN NOTE: PT SEEN BY CM AT BEDSIDE. [facility].
[2017-04-20 16:00] VITALS: BP 106/68
--- NOTE | 2017-04-20 18:49 | NUR ---
MS RN CLOSING NOTES: NO ACUTE CHANGES DURING SHIFT. DENIES PAIN. NO RESPIRATORY DISTRESS NOTED. EZ G20 KEPT PATENT & INTACT W/ NS INFUSING AT 75 CC/HR. ORDERS CARRIED OUT. BED LOW, LOCKED WITH CALL LIGHT WITHIN REACH. WILL ENDORSE TO PM NURSE FOR YASMEEN.
[2017-04-20 20:00] VITALS: BP 110/62
--- NOTE | 2017-04-20 20:00 | NUR ---
RN NOTES RECEIVED PATIENT RESTING COMFORTABLY IN BED, AWAKE, ALERT AND ORIENTED. ABLE TO VERBALIZE NEED. NO DISTRESS NOTED. NO COMPLAINT OF PAIN OR DISCOMFORT. NEEDS ATTENDED. WILL CONTINUE TO MONITOR
[2017-04-21 04:00] VITALS: BP 110/68
[2017-04-21] MEDS: IV NS 0.9% 1,000 ML IV PRN (05:59)
--- NOTE | 2017-04-21 06:44 | NUR ---
RN CLOSING NOTES IN BED RESTING COMFORTABLY WITH NO DISTRESS, BREATHING EVEN AND UNLABORED. VITAL SIGNS WNL. NO SIGNIFICANT CHANGE OF CONDITION. WILL ENDORSE TO AM SHIFT FOR CONTINUITY OF CARED.
--- NOTE | 2017-04-21 07:30 | NUR ---
MS RN AM NOTES: PT IN BED, AA&OX4. ON RA, RESPIRATIONS EVEN AND UNLABORED WITH NO SOB NOTED. DENIES PAIN. R SIDED BODY WEAKNESS NOTED. IV ACCESS ON EZ G 20 W/ NS AT 75 CC/HR INFUSING. SITE CLEAR. CARDIAC DIET. USES BSC. CARE PLAN REVIEWED AND ADVISED TO USE CALL LIGHT FOR ASSISTANCE, PT VERBALIZED UNDERSTANDING. BED LOW, LOCKED WITH CALL LIGHT WITHIN REACH. WILL CONT TO MONITOR.
[2017-04-21 08:00] VITALS: BP 112/59
--- NOTE | 2017-04-21 08:13 | NUR ---
MS RN NOTES ACCUCHECK: BS 67 MG/DL. NO INSULIN COVERAGE GIVEN. EATING BREAKFAST.
[2017-04-21] MEDS: BLOOD SUGAR DIAGNOSTIC 1 EACH STRIP IN SCH ×4 (08:15→21:07)
[2017-04-21] MEDS: PANTOPRAZOLE 40 MG TABLET.DR PO SCH (08:18)
[2017-04-21] MEDS: ASPIRIN 81 MG TAB.CHEW PO SCH (08:19)
[2017-04-21] MEDS: DOCUSATE SODIUM 100 MG CAPSULE PO SCH ×2 (08:19→17:08)
--- NOTE | 2017-04-21 09:30 | NUR ---
MS RN NOTES ADMINISTERED DUE MEDS.
--- NOTE | 2017-04-21 10:12 | NUR ---
MS RN NOTES SPOKE WITH DENNISE TAPIA - PER HER, STILL WAITING FOR BED AVAILABILITY AT [facility].
--- NOTE | 2017-04-21 11:12 | NUR ---
MS RN NOTES ACCUCHECK: BS 75 MG/DL. NO INSULIN COVERAGE GIVEN. EATING BREAKFAST.
[2017-04-21 16:00] VITALS: BP 115/59
--- NOTE | 2017-04-21 17:13 | NUR ---
MS RN NOTES ACCUCHECK: BS 67 MG/DL. NO INSULIN COVERAGE GIVEN.
[2017-04-21 18:00] VITALS: BP 115/59
--- NOTE | 2017-04-21 18:22 | NUR ---
MS RN NOTES PATIENT RESTING COMFORTABLY IN BED, NOT IN ANY DISTRESS. ALL NEEDS MET. NO OTHER SIGNIFICANT CHANGE IN CONDITION. SAFETY MEASURES IN PLACE. CALL LIGHT WITHIN REACH. WILL ENDORSE TO NEXT SHIFT FOR YASMEEN.
--- NOTE | 2017-04-21 19:30 | NUR ---
MS RN INITIAL NOTE RECEIVED PT AWAKE AND ALERT, ORIENTED X3, NO COMPLAINT OF PAIN OR RESPIRATORY DISTRESS NOTED DURING PHYSICAL ASSESSMENT, PT IS CLEAN/DRY AND COMFORTABLE, WILL MAINTAIN SAFETY MEASURES AT ALL TIMES, NEEDS WILL BE ANTICIPATED AND ATTENDED TO PROMPTLY.
[2017-04-21 20:00] VITALS: BP 132/73
[2017-04-21 22:00] VITALS: BP 132/73
[2017-04-22 04:00] VITALS: BP 114/58
[2017-04-22] MEDS: BLOOD SUGAR DIAGNOSTIC 1 EACH STRIP IN SCH ×2 (06:23→11:55)
[2017-04-22 08:00] VITALS: BP 106/62
--- NOTE | 2017-04-22 08:05 | NUR ---
RN NOTES RECEIVED PT RESTING IN BED, AWAKE ALERT ORIENTEDX4 ABLE TO COMMUNICATE NEEDS NOTED WITH SOME UNCLEAR SPEECH. FACIAL WEAKNESS ON THE R SIDE STILL NOTED. ON RA VALARIE WELL, NO ACUTE DISTRESS NOTED. DENIES PAIN AT THIS TIME. PT ABLE TO MOVE LUE AND LLE. R ARM STILL FLACCID, R LEG ABLE TO MOVE AND LIFT LEG FOR MORE THAN 10 SECONDS. PLAN OF CARE DISCUSSED WITH PT. REMINDED TO USE CALL LIGHT FOR ASSISTANCE, BEDSIDE COMMODE PROVIDED AT BEDSIDE. CALL LIGHT WITHIN REACH.
[2017-04-22] MEDS: ASPIRIN 81 MG TAB.CHEW PO SCH (08:36)
[2017-04-22] MEDS: DOCUSATE SODIUM 100 MG CAPSULE PO SCH (08:36)
[2017-04-22] MEDS: PANTOPRAZOLE 40 MG TABLET.DR PO SCH (08:36)
--- NOTE | 2017-04-22 11:06 | NUR ---
RN NOTES DR QUINTANA AT BEDSIDE, PLAN OF CARE DISCUSSED WITH PT, ALL QUESTIONS AND CONCERNS ANSWERED BY MD.
--- NOTE | 2017-04-22 15:55 | NUR ---
RN NOTES PT DISCHARGED FROM UNIT IN STABLE CONDITION, TRANSPORTED VIA AMBULANCE TO [facility] ACCOMPANIED BY EMTX3 AND MOM. ALL DISCHARGE INSTRUCTIONS GIVEN, EXIT CARE PROVIDED. PT VERBALIZED UNDERSTANDING. PAPERWORK SIGNED BY PT. VS STABLE REPORT GIVEN TO NURSE LUNA FOR CONTINUITY OF CARE. IV SITE ON R AC REMOVED, PRESSURE APPLIED COVERED WITH CLEAN DRY DRESSING. ID BAND REMOVED.
[2017-04-22 16:12] LABS: *FACTOR II, DNA ANALYSIS Negative (.)
== END 2017-04-22 15:33 | DRG 64 ==
LOC: ER 14:13 → TELE-TD 16:04 → ICU 04-18 06:35 → MEDSG1 04-18 10:30 → TELE-TD 04-18 10:51 → MEDSG1 04-18 13:30
PROVIDERS: ADMIT Internal Medicine; ATTEND Internal Medicine
PROC: B246ZZ4 Ultrasonography of Right and Left Heart, Transesophageal (ICD-10-PCS; principal; 2017-04-18)
DX: I63.512 Cerebral infarction due to unspecified occlusion or stenosis of left middle cerebral artery (principal); G92 Toxic encephalopathy; E44.1 Mild protein-calorie malnutrition; G81.91 Hemiplegia, unspecified affecting right dominant side; Q21.1 Atrial septal defect; G37.9 Demyelinating disease of central nervous system, unspecified; E66.01 Morbid (severe) obesity due to excess calories; F12.90 Cannabis use, unspecified, uncomplicated; R29.810 Facial weakness; R47.02 Dysphasia
CPT/HCPCS: 36415; 70450-TC; 70496-TC; 70498-TC; 70551-TC; 70552-TC; 71010-TC; 80048-TC; 80053-TC; 80061-TC; 80076-TC; 80305; 81240; 81241; 82962-TC; 83735-TC; 83880; 84100-TC; 84443-TC; 84484-TC; 84703-TC; 85025-TC; 85300; 85301; 85303; 85610-TC; 85613; 85652-TC; 85670; 85705; 85730-TC; 85732; 86147; 86592; 87081-TC; 92507-TC; 92521; 92526; 92611-TC; 93307-TC; 93312-TC; 97110-TC; 97112-TC; 97116-TC; 97530-TC; A4606; J2405; J3475; J7030; J7050; Q9967; Z7610